=== PATIENT | female | born 1935 | race Caucasian/White ===

== ENCOUNTER → 2021-11-24 | Outpatient (CLI) | payer MEDICARE ==
--- NOTE | 2021-11-24 17:15 | RAD ---
Study: XR RT TOE 2+ VIEWS Indication: Third digit cellulitis. Comparison: None. Findings: Close evaluation of the lesser toes is made difficult by flexion deformities. On the dedicated latera l view of the third toe there is a subtle cortical defect at the plantar articular margin of the inte rmediate phalanx at the DIP joint and a lucency propagates along the head/neck to the dorsal surface. Congruent articular surfaces. No aggressive periostitis or large area of cortical erosion. 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 Chronic focus of ossification adjacent to the tip of the lateral malleolus. Impression: Possible subtle fracture at the distal aspect of the third intermediate phalanx extending to the DIP joint. In the setting of reported cellulitis a pathologic fracture from osteomyelitis is not excluded but the appearance is not classic for infection. Correlate for any recent trauma and for a deep ulce r to help differentiate. Electronically signed by: DANILO MUNOZ MD (11/24/2021 5:13 PM) [facility]
== END ==
LOC: RAD 16:25
PROVIDERS: ATTEND Family Medicine
DX: L03.031 Cellulitis of right toe (principal); M19.071 Primary osteoarthritis, right ankle and foot
CPT/HCPCS: 73660